=== PATIENT | female | born 1970 | race Caucasian/White ===

== ENCOUNTER 2019-11-27 18:48 | Emergency (ER) | payer OTHER, SELFPAY ==
--- NOTE | 2019-11-27 18:58 | ED.URI ---
HPI - URI/Sore Throat General Chief Complaint: Upper Respiratory Infection Stated Complaint: sore throat/fuller Time Seen by Provider: 11/27/19 18:59 Source: patient Mode of arrival: ambulatory Limitations: no limitations History of Present Illness HPI Narrative: Leslie Abad is a 49 yo female with no prior medical history who comes to express care with a sore throat and fever lack of appetite is been on for 3 days and getting progressively worse Related Data Home Medications Medication Instructions Recorded Confirmed No Home Medications 11/27/19 11/27/19 Allergies Allergy/AdvReac Type Severity Reaction Status Date / Time succinylcholine Allergy Severe Difficulty Verified 11/27/19 19:06 waking up grom anesthesia metoclopramide Allergy Mild Hyperactive Verified 11/27/19 19:06 Review of Systems Review of Systems: Narrative: CONSTITUTIONAL: Has fever, chills, sweats. EYES: Denies visual changes, redness, discharge. ENT: Denies rhinorrhea, congestion, has sore throat, otalgia. CARDIOVASCULAR: Denies chest pain, palpitations, edema. RESPIRATORY: Denies dyspnea, wheezing, cough GASTROINTESTINAL: Denies abdominal pain, nausea, vomiting, diarrhea. GENITOURINARY: Denies dysuria, hematuria, abnormal discharge SKIN: Denies rash or itching. MUSCULOSKELETAL: Denies acute back pain, joint pain, or myalgia. NEUROLOGIC: Denies numbness, or focal weakness. PSYCHIATRIC: Denies anxiety or depression. PMFSH Family History Family History Father Hypertension Social History Social History Smoking status: Never smoker Alcohol intake: current Comments At time of signature, I agree with nursing past medical, surgical, social and family history. There is no relevant family history pertinent to the presenting complaint. She has no personal medical history or surgical history Exam Narrative: Exam Narrative: GENERAL: This is a well-nourished, well-developed patient, in no apparent distress. HEAD: normocephalic, atraumatic. EYES: PERRL. Sclera clear/white. Vision is grossly intact. EARS: External ears normal, auditory canals clear and without drainage, TMs normal without perforation. Hearing grossly intact. NOSE: External nose normal with no obvious nasal discharge, nares with redness, no rhinorrhea. THROAT: Mucous membranes moist, posterior pharynx erythme with edema NECK: Neck supple, non-tender without lymphadenopathy, CARDIOVASCULAR: Regular rate and rhythm without murmurs, gallops, or rubs. RESPIRATORY: Clear to auscultation. Breath sounds equal bilaterally. No wheezes, rales, or rhonchi. GASTROINTESTINAL: Abdomen soft, non-tender, SKIN: warm, intact with no suspicious lesions or rash, good texture and turgor. NEURO: awake, alert, and oriented to person, place and time. There were no obvious focal neurologic abnormalities. Steady gait EXTREMITIES: Normal range of motion. . BACK: Nontender without deformity. Course Course Emergency Course: strep test Vital Signs Vital signs: Vital Signs Temperature 99 F 11/27/19 19:04 Pulse Rate 65 11/27/19 19:04 Respiratory Rate 11/27/19 19:04 Blood Pressure 119/77 11/27/19 19:04 Pulse Oximetry 100 11/27/19 19:04 Temperature 99 F 11/27/19 19:04 Pulse Rate 65 11/27/19 19:04 Respiratory Rate 11/27/19 19:04 Blood Pressure 119/77 11/27/19 19:04 Pulse Oximetry 100 11/27/19 19:04 MDM - URI/Sore Throat Differential Diagnosis Differential diagnosis: Likely upper respiratory infection, pharyngitis and other Lab Data Labs: Strep Screen Positive Group A Strep *(Reference Range: Negative)* Discharge Plan Discharge Clinical Impression: Pharyngitis Qualifiers: Pharyngitis/tonsillitis etiology: streptococcus Qualified Code(s): J02.0 - Streptococcal pharyngitis Patient Disposition: [facility]
[2019-11-27 19:04] VITALS: BP 119/77; PULSE 65; RESP 20; TEMP 37.2; O2SAT 100
== END 2019-11-27 19:29 | disposition home or self-care (01) ==
PROVIDERS: Emergency Provider Nurse Practitioner; PCP Obstetrics & Gynecology
DX: J02.0 Streptococcal pharyngitis (principal)
CPT/HCPCS: 87880; 99213; G0463

== ENCOUNTER 2021-11-15 17:17 | Emergency (ER) | payer OTHER, SELFPAY ==
[2021-11-15 17:29] VITALS: BP 131/83; PULSE 58; RESP 16; TEMP 37.1; O2SAT 99
--- NOTE | 2021-11-15 17:39 | ED.URI ---
HPI - URI/Sore Throat General Chief Complaint: Upper Respiratory Infection Stated Complaint: sorethroat Time Seen by Provider: 11/15/21 17:50 Source: patient and RN notes reviewed Mode of arrival: ambulatory Limitations: no limitations History of Present Illness HPI Narrative: 51-year-old female presents with concern for 3-day history of sore throat, body aches, chills, fever, headache, upset stomach. She reports she works at a daycare. She reports she had COVID in July 2021. She denies any [id number] intervention. MD elicited complaint: sore throat Related Data Home Medications Medication Instructions Recorded Confirmed No Home Medications 11/27/19 11/15/21 Allergies Allergy/AdvReac Type Severity Reaction Status Date / Time succinylcholine Allergy Severe Difficulty Verified 11/27/19 19:06 waking up grom anesthesia metoclopramide Allergy Mild Hyperactive Verified 11/27/19 19:06 Review of Systems Review of Systems: CONSTITUTIONAL: Reports malaise, chills, sweats, fever. EYES: Denies visual changes, redness, or discharge. ENT: Denies rhinorrhea, congestion, sinus pain, otalgia. Reports sore throat. CARDIOVASCULAR: Denies chest pain, palpitations, or edema. RESPIRATORY: Denies cough. Denies dyspnea. GASTROINTESTINAL: Denies abdominal pain, vomiting, diarrhea. Reports nausea and decreased appetite SKIN: Denies rash or itching. MUSCULOSKELETAL: Reports myalgia. NEUROLOGIC: Reports headache. All systems reviewed & are unremarkable except as noted in HPI and below PMFSH Family History Family History Father Hypertension Social History Social History Smoking status: Never smoker Alcohol intake: current Comments At time of signature, agree with nursing past medical, surgical, social and family history. There is no relevant family history pertinent to the presenting complaint Exam Narrative: GENERAL: Well-appearing, well-nourished, and in no acute distress. HEAD: Normocephalic EYES: PERRLA, conjunctivae clear ENT: Nares clear, turbinates edematous and erythematous, clear discharge. Mucous membranes moist. TM pearly terrell with dull light reflex bilaterally; no tragal tenderness. Oropharynx not erythematous without lesions. Tonsils not enlarged and without exudate, no drooling, no hoarseness, no trismus, uvula midline. NECK: Supple. No lymphadenopathy CHEST: Clear to auscultation, breath sounds equal. No wheezing, rhonchi, rales, or stridor. No respiratory distress, speaks in full sentences. HEART: Regular rate and rhythm. No murmur heard. SKIN: Warm, dry, no rash. NEURO: Alert and oriented x3. PSYCH: Normal mood and affect Course Course Emergency Course: Patient is aware of diagnosis, understands and agrees to treatment plan. Anticipatory guidance given. Patient agrees to follow-up as directed and is aware of reasons to seek care at the emergency department. Portions of this record may have been created with voice recognition software Level of Care: Express Care Visit Vital Signs Vital signs: Vital Signs Temperature 98.7 F 11/15/21 17:29 Pulse Rate 58 L 11/15/21 17:29 Respiratory Rate 16 11/15/21 17:29 Blood Pressure 131/83 11/15/21 17:29 Pulse Oximetry 99 11/15/21 17:29 Temperature 98.7 F 11/15/21 17:29 Pulse Rate 58 L 11/15/21 17:29 Respiratory Rate 16 11/15/21 17:29 Blood Pressure 131/83 11/15/21 17:29 Pulse Oximetry 99 11/15/21 17:29 Reviewed. MDM - URI/Sore Throat MDM Narrative Medical decision making narrative: Differential diagnosis considered: Cavazos virus, strep pharyngitis, allergic rhinitis, upper respiratory tract infection, sinusitis, rhinosinusitis, nasopharyngitis. viral pharyngitis, otitis media, otitis externa, pneumonia, bronchitis, viral cough syndrome, viral syndrome, and influenza. Exam findings show no acute keena
== END 2021-11-15 18:20 | disposition home or self-care (01) ==
PROVIDERS: Emergency Provider Nurse Practitioner; PCP Internal Medicine
DX: J06.9 Acute upper respiratory infection, unspecified (principal); Z20.822 Contact with and (suspected) exposure to COVID-19; Z86.16 Personal history of COVID-19
CPT/HCPCS: 87081; 87426; 87880; 99213; C9803; G0463